=== PATIENT | female | born 1960 | race African-American/Black ===

== ENCOUNTER 2019-08-26 21:59 | Emergency (ER) | payer SELFPAY ==
[~2019-08-26] VITALS: Ht 172.7 cm; Wt 88.6 kg
[2019-08-26] MEDS ORDERED: ASPIRIN 81MG TABLET PO ONE (23:15)
[2019-08-26 23:40] LABS: BASOPHILS % 1.2 % (0.0-2.0); EOSINOPHILS % 2.3 % (0.0-5.0); HEMATOCRIT. 37.7 % (36.0-48.0); HEMOGLOBIN. 12.7 g/dL (12.0-16.0); LYMPHOCYTES % 28.6 % (20.0-50.0); MEAN CORPUSCULAR HEMOGLOBIN 29.1 pg (28.0-32.0); MEAN CORPUSCULAR VOLUME 86.5 fL (81.0-99.0); MEAN PLATELET VOLUME 7.1 fl (7.4-10.4); MONOCYTES % 6.2 % (2.0-8.0); NEUTROPHILS % 61.7 % (40.0-76.0); PLATELET 276 x1000/uL (130-400); RED BLOOD CELL COUNT 4.36 mill/uL (4.2-5.4); RED CELL DISTRIBUTION WIDTH 13.6 % (11.6-14.6)
[2019-08-26 23:49] LABS: PROTHROMBIN TIME 10.9 sec (9.6-11.0)
[2019-08-27 00:17] LABS: CHLORIDE 105 mEq/L (98-107)
[2019-08-27 00:51] LABS: CLARITY URINE CLEAR (CLEAR); COLOR URINE YELLOW (YELLOW); KETONES URINE NEGATIVE (NEGATIVE); LEUKOCYTE ESTERASE URINE TRACE (NEGATIVE); NITRITE URINE NEGATIVE (NEGATIVE); OCCULT BLOOD URINE NEGATIVE (NEGATIVE); PH URINE 7.5 (4.5-8.0); PROTEIN URINE NEGATIVE (NEGATIVE); SPECIFIC GRAVITY URINE 1.011 (1.005-1.030); UROBILINOGEN URINE 0.2 E.U./dL (0.2-1.0)
[2019-08-27 01:26] VITALS: BP 118/74
== END 2019-08-27 01:28 | disposition home or self-care (01) ==
LOC: ER 22:06
DX: R05 Cough (principal); R42 Dizziness and giddiness; R07.9 Chest pain, unspecified; I10 Essential (primary) hypertension; R51 Headache; R11.0 Nausea
CPT/HCPCS: 36415; 71045; 80053; 81003; 83880; 84484; 85025; 85610; 93005; 99285; Z7610